=== PATIENT | female | born 1950 | race Two or more races ===

== ENCOUNTER 2019-06-25 23:52 | Inpatient (IN) | payer SELFPAY ==
[~2019-06-25] VITALS: Ht 152.4 cm; Wt 75.4 kg
[2019-06-26] MEDS ORDERED: MORPHINE SULFATE 4 MG/ML VIAL. IV/SQ PRN (00:15)
[2019-06-26 00:23] LABS: BILIRUBIN,URINE NEGATIVE (NEG); CLARITY,URINE CLEAR; COLOR,URINE YELLOW; NITRITE,URINE NEGATIVE (NEG); PROTEIN,URINE 30 mg/dL (NEG-TRACE); UROBILINOGEN,URINE 0.2 mg/dL (0.2 mg/dL)
[2019-06-26 00:28] LABS: BACTERIA,URINE FEW /HPF (0-FEW); SQUAMOUS EPITHELIAL CELL,UR FEW /LPF
[2019-06-26 00:29] LABS: AMORPHOUS SEDIMENT,UR PRESENT /HPF
[2019-06-26] MEDS ORDERED: ONDANSETRON PF 4 MG/2 ML VIAL. IV ONE (00:30)
[2019-06-26 00:31] LABS: BASO % 1 % (0-3); EOS # 0.3 x10^3/uL (0.0-0.7); EOS % 4 % (0-3); HEMATOCRIT 35.1 % (36.0-47.0); HEMOGLOBIN 11.6 g/dL (12.0-15.5); LYMPH # 1.3 x10^3/uL (1.0-4.8); LYMPH % 19 % (24-48); MEAN CORPUSCULAR HEMOGLOBIN 29 pg (25-35); MEAN CORPUSCULAR HGB CONC 33 g/dL (31-37); MEAN CORPUSCULAR VOLUME 86 fL (79-100); MONO # 0.9 x10^3/uL (0.0-1.1); MONO % 12 % (0-9); NEUT # 4.4 x10^3/uL (1.8-7.7); NEUT % 64 % (31-73); PLATELET COUNT 242 x10^3/uL (140-400); RED BLOOD COUNT 4.07 x10^6/uL (3.50-5.40); RED CELL DISTRIBUTION WIDTH 14.8 % (11.5-14.5); WHITE BLOOD COUNT 6.9 x10^3/uL (4.0-11.0)
[2019-06-26] MEDS ORDERED: METF10007 PO (00:38)
[2019-06-26] MEDS ORDERED: LISI1TAB20 PO (00:39)
[2019-06-26] MEDS ORDERED: SITA1TBM4 PO (00:39)
[2019-06-26 00:40] LABS: CALCIUM 9.5 mg/dL (8.5-10.1); CREATININE 1.4 mg/dL (0.6-1.0); GFR 37.5; POTASSIUM 4.2 mmol/L (3.5-5.1)
[2019-06-26] MEDS ORDERED: ATOR40TA59 PO (00:40)
[2019-06-26 00:41] LABS: PROTHROMBIN TIME PATIENT 12.6 SEC (11.7-14.0)
[2019-06-26 00:46] LABS: ALBUMIN 3.7 g/dL (3.4-5.0); ALBUMIN/GLOBULIN RATIO 0.7 (1.0-1.7); DIRECT BILIRUBIN 1.5 mg/dL (0.0-0.2); TOTAL BILIRUBIN 1.7 mg/dL (0.2-1.0)
[2019-06-26] MEDS ORDERED: INSU100V5 IJ (00:50)
[2019-06-26] MEDS ORDERED: NPH,100V SQ (00:51)
[2019-06-26] MEDS ORDERED: IV NORMAL SALINE 1000ML BAG 1,000 ML IV ONE (01:15)
--- NOTE | 2019-06-26 01:23 | RAD ---
Indication:Right upper quadrant pain. TECHNIQUE: Grayscale, color Doppler and spectral waveform is of the abdomen obtained. COMPARISON:None FINDINGS: Pancreas not visualized during bowel gas. IVC is within normal limits. Liver is top normal in size measuring 17 cm with diffuse increased echogenicity and decreased through transmission. Status post cholecystectomy. CBD is mildly dilated measuring 7 mm likely secondary to reservoir effect from cholecystectomy. Right kidney measures 11.3 cm in length without hydronephrosis. IMPRESSION: Hepatic steatosis. Electronically signed by: Fady Ratliff DO (06/26/2019 1:20 AM) [facility]
--- NOTE | 2019-06-26 01:35 | RAD ---
PQRS Compliance statement: One or more of the following individualized dose reduction techniques were utilized for this examination: 1. Automated exposure control. 2. Adjustment of the mA and/or kV according to patient size. 3. Use of iterative reconstruction technique. Indication:Pain TECHNIQUE: CT abdomen and pelvis without IV contrast with multiplanar reformats. COMPARISON: None FINDINGS: Limited evaluation of solid abdominal and pelvic organs due to lack of IV contrast. Heart is normal in size. No pericardial or pleural effusion. Clear lung bases. Noncontrast appearance of the liver, spleen, pancreas, adrenals and kidneys within normal limits. Status post cholecystectomy. No enlarged retroperitoneal or pelvic adenopathy. No free pelvic fluid or ascites. No bowel obstruction. Appendix not visualized. No right lower quadrant inflammatory changes. Anteverted uterus. Urinary bladder demonstrates no radiopaque stone. No pneumoperitoneum. No suspicious bony lesion. IMPRESSION: Limited evaluation of solid abdominal and pelvic organs due to lack of IV contrast. No nephrolithiasis or hydronephrosis. No bowel obstruction. Electronically signed by: Fady Ratliff DO (06/26/2019 1:32 AM) [facility]
[2019-06-26] MEDS ORDERED: ONDANSETRON PF 4 MG/2 ML VIAL. IV PRN ×2 (02:45→09:00)
[2019-06-26] MEDS ORDERED: MORPHINE SULFATE 4 MG/ML VIAL. IV PRN (02:45)
[2019-06-26 03:20] VITALS: BP 143/59
--- NOTE | 2019-06-26 03:29 | NUR ---
The patient, KIMBERLY THOMSON, 68 y/o, F admitted by ALYSSA AZEVEDO MD, was given written information regarding hospital policies, unit procedures and contact persons. Valuables were checked and left with her, she is polish speaking only family are here to translate.
--- NOTE | 2019-06-26 03:34 | PHYS DOC ---
Past Medical History Past Medical History: Diabetes-Type I Past Surgical History: Cholecystectomy, Other Additional Past Surgical Histo: RIGHT EYE SURGERY? Alcohol Use: None Drug Use: None Adult General Chief Complaint Chief Complaint: ABDOMINAL PAIN HPI HPI Patient is a 68 year old female who presents to the ED with a chief complaint of abdominal pain. Patient states that the pain started yesterday but got worse tonight. Patient describes the pain is in the right upper quadrant and also in e pigastric region. Patient states that the pain radiates around to her right upper back. Patient states that she does not have a gallbladder. Patient also states that her blood glucose is benign the past 1 day. Patient to consider longer coming into the ER. Review of Systems Review of Systems Constitutional: Denies fever or chills [] HENT: Denies nasal congestion or sore throat [] Respiratory: Denies cough or shortness of breath [] Cardiovascular: No additional information not addressed in HPI [] GI: Complains of right upper quadrant and epigastric abdominal tenderness : Denies dysuria or hematuria [] Musculoskeletal: Denies back pain or joint pain [] Neurologic: Denies headache, focal weakness or sensory changes [] All other systems were reviewed and found to be within normal limits, except as documented in this note. Current Medications Current Medications Current Medications Medications (Trade) Dose Ordered Sig/Nick Start Time Stop Time Status Last Admin Dose Admin Morphine Sulfate (Morphine Sulfate) 4 mg PRN Q2HR PRN 06/26/19 02:45 06/27/19 02:44 Ondansetron HCl (Zofran) 4 mg PRN Q8HRS PRN 06/26/19 02:45 06/27/19 02:44 Sodium Chloride 1,000 ml @ 125 mls/hr Q8H 06/26/19 02:45 06/27/19 02:44 Allergies Allergies Allergies Coded Allergies Type Severity Reaction Last Updated Verified No Known Drug Allergies 06/26/19 No Physical Exam Physical Exam Constitutional: Well developed, well nourished, no acute distress, non-toxic appearance. [] HENT: Normocephalic, atraumatic Eyes: PERRLA, EOMI Neck: Normal range of motion, no tenderness, supple, no stridor. [] Cardiovascular:Heart rate regular rhythm, no murmur [] Lungs & Thorax: Bilateral breath sounds clear to auscultation [] Abdomen: Right upper quadrant abdominal tenderness Back: No tenderness, no CVA tenderness. [] Extremities: No tenderness, no cyanosis, no clubbing, ROM intact, no edema. [] Neurologic: Alert and oriented X 3 Psychologic: Affect normal, judgement normal, mood normal. [] Current Patient Data Vital Signs Vital Signs Date Time Temp Pulse Resp B/P (MAP) Pulse Ox O2 Delivery O2 Flow Rate FiO2 06/26/19 02:36 82 18 182/74 (110) 98 06/26/19 00:05 98.7 Room Air 98.7 Lab Values Laboratory Tests Test 06/26/19 00:10 06/26/19 00:15 Urine Collection Type Unknown Urine Color Yellow Urine Clarity Clear Urine pH 6.0 Urine Specific [place] 1.010 Urine Protein 30 mg/dL (NEG-TRACE) Urine Glucose (UA) 100 mg/dL (NEG) Urine Ketones (Stick) Negative mg/dL (NEG) Urine Blood Trace (NEG) Urine Nitrite Negative (NEG) Urine Bilirubin Negative (NEG) Urine Urobilinogen Dipstick 0.2 mg/dL (0.2 mg/dL) Urine Leukocyte Esterase Small (NEG) Urine RBC 1-2 /HPF (0-2) Urine WBC 11-20 /HPF (0-4) Urine Squamous Epithelial Cells Few /LPF Urine Amorphous Sediment Present /HPF Urine Bacteria Few /HPF (0-FEW) White Blood Count 6.9 x10^3/uL (4.0-11.0) Red Blood Count 4.07 x10^6/uL (3.50-5.40) Hemoglobin 11.6 g/dL (12.0-15.5) L Hematocrit 35.1 % (36.0-47.0) L Mean Corpuscular Volume 86 fL (79-100) Mean Corpuscular Hemoglobin 29 pg (25-35) Mean Corpuscular Hemoglobin Concent 33 g/dL (31-37) Red Cell Distribution Width 14.8 % (11.5-14.5) H Platelet Count 242 x10^3/uL (140-400) Neutrophils (%) (Auto) 64 % (31-73) Lymphocytes (%) (Auto) 19 % (24-48) L Monocytes (%) (Auto) 12 % (0-9) H Eosinophils (%) (Auto) 4 % (0-3) H Basophils (%) (Auto) 1 % (0-3) Neutrophils # (Auto) 4.4 x10^3/uL (1.8-7.7) Lymphocytes # (Auto) 1.3 x10^3/uL (1.0-4.8) Monocytes # (Auto) 0.9 x10^3/uL (0.0-1.1) Eosinophils # (Auto) 0.3 x10^3/uL (0.0-0.7) Basophils # (Auto) 0.0 x10^3/uL (0.0-0.2) Prothrombin Time 12.6 SEC (11.7-14.0) Prothrombin Time INR 1.0 (0.8-1.1) Sodium Level 134 mmol/L (136-145) L Potassium Level 4.2 mmol/L (3.5-5.1) Chloride Level 98 mmol/L (98-107) Carbon Dioxide Level 25 mmol/L (21-32) Anion Gap 11 (6-14) Blood Urea Nitrogen 24 mg/dL (7-20) H Creatinine 1.4 mg/dL (0.6-1.0) H Estimated GFR (Cockcroft-Gault) 37.5 BUN/Creatinine Ratio 17 (6-20) Glucose Level 176 mg/dL (70-99) H Calcium Level 9.5 mg/dL (8.5-10.1) Total Bilirubin 1.7 mg/dL (0.2-1.0) H Direct Bilirubin 1.5 mg/dL (0.0-0.2) H Aspartate Amino Transferase (AST) 251 U/L (15-37) H Alanine Aminotransferase (ALT) 269 U/L (14-59) H Alkaline Phosphatase 486 U/L (46-116) H Total Protein 9.0 g/dL (6.4-8.2) H Albumin 3.7 g/dL (3.4-5.0) Albumin/Globulin Ratio 0.7 (1.0-1.7) L Lipase 865 U/L (73-393) H Laboratory Tests 06/26/19 00:15 Laboratory Tests 06/26/19 00:15 EKG EKG EKG interpretation HR: 86 Normal sinus rhythm Regular intervals Normal axis Nonspecific ST changes No STEMI Radiology/Procedures Radiology/Procedures Ordered ultrasound and CT abdomen and pelvis Impressions: Ultrasound shows no acute process. Patient does not have a gallbladder which has been surgically removed. CT scan of the abdomen and pelvis without IV contrast is negative for acute process. We had to do the CT without IV contrast secondary to patient's kidney function. Course & Med Decision Making Course & Med Decision Making Pertinent Labs and Imaging studies reviewed. (See chart for details) Ordered labs, UA, ultrasound, IV morphine, IV Zofran Labs show that the liver function tests are elevated. Lipase is elevated as well. Ultrasound does not show any acute disease. Ordered CT abdomen and pelvis without IV contrast S patient's kidney function is low. UA shows WBCs that no nitrites or leukocyte esterase. CT abdomen and pelvis shows no acute disease. Discussed results and plan of care with patient and family. Patient will be admitted for further workup and evaluation of elevated liver function tests, lipase and acute abdominal pain. I discussed case with hospitalist service for admission. Patient will likely benefit from GI consult. Dragon Disclaimer Dragon Disclaimer This electronic medical record was generated, in whole or in part, using a voice recognition dictation system. Departure Departure Referrals: ADELINA BOYER DO (PCP) SATNAM PINK DO Jun 26, 2019 03:33
[2019-06-26] MEDS: IV NORMAL SALINE 1000ML BAG 1,000 ML IV SCH ×2 (03:44→10:45)
[2019-06-26] MEDS ORDERED: CHOL500016 PO (06:06)
[2019-06-26] MEDS ORDERED: ASPI81TA59 PO (06:06)
[2019-06-26] MEDS ORDERED: RANI150T2 PO (06:06)
[2019-06-26] MEDS ORDERED: CYAN-25 PO (06:06)
--- NOTE | 2019-06-26 06:13 | EKG ---
[facility] [address] [place] [address] Test Date: 2019-06-26 Test Time: 00:31:49 Pat Name: KIMBERLY THOMSON Department: Room: [facility] Gender: F Scada Operator: : 1950 Requested By: SATNAM PINK Order Number: [id number] Reading MD: Robbie Keith MD Measurements Intervals [place] Rate: 86 P: 54 MT: 154 QRS: -34 QRSD: 90 T: 47 QT: 358 QTc: 431 Interpretive Statements SR NON-SPECIFIC ST/T CHANGES Electronically Signed On 07-03-2019 15:44:06 CDT by Robbie Keith MD
[2019-06-26] MEDS ORDERED: DEXTROSE 50% 25 GM / 50ML DISP.SYRIN. IV PRN ×2 (06:15→09:00)
[2019-06-26 07:00] VITALS: BP 143/59
[2019-06-26] MEDS ORDERED: INSULIN LISPRO 300 UNITS/3 ML VIAL. SQ SCH (08:00)
[2019-06-26] MEDS: CYANOCOBALAMIN (VITAMIN B-12) 1,000 MCG TABLET. PO SCH (09:00)
[2019-06-26] MEDS: CHOLECALCIFEROL (VITAMIN D3) 1,000 UNIT TABLET PO SCH (09:00)
[2019-06-26] MEDS: ASPIRIN CHEWABLE 81 MG TABLET. PO SCH (09:00)
[2019-06-26] MEDS ORDERED: traMADol 50 MG TABLET PO PRN (09:15)
[2019-06-26] MEDS ORDERED: cloNIDine HCL 0.1 MG TABLET PO PRN (09:15)
--- NOTE | 2019-06-26 09:16 | PDOC2 ---
GI CONSULT Reason For Consult: Elevated LFTs and lipase HPI: HPI: 68 y/o Kyrgyz-speaking female admitted through ER - translation help from her son, Landen. 3 days of worsening right-sided burning wrapping around to right flank, similar to symptoms prior to cholecystectomy several years ago at [facility] for cholelithiasi s. Pain worse w/ bending over. Subjective fever. Has noted hyperglycemia as well. H/o GERD improved w/ ranitidine. No n/v, dysphagia, diarrhea, constipation, weight loss, or bleeding. Previous EGD ~6 years ago at [facility], reportedly normal. Colonoscopy also reportedly normal years ago at [facility]. No liver, pancreas, or PUD history. Daily ASA. Labs note normal WBC, Hgb 11.6, INR 1, BUN 24, Cr 1.4, bili 1.7, AST 251, ALT 269, Alk Phos 486, lipase 865. CT w/o contrast noted normal pancreas. US shows hepatic steatosis and CBD 7mm post-cholecystectomy. PMH: PMH: HTN, HLD, DM, GERD , right eye surgery, cholecystectomy FH: Family History: No pertinent hx Social History: Smoke: No ALCOHOL: none ROS: GEN: +fevers HEENT: Denies blurred vision, sore throat CV: Denies chest pain RESP: Denies shortness of air, cough GI: Per HPI : Denies hematuria, dysuria ENDO: Denies weight changes NEURO: Denies confusion, dizziness MSK: Denies weakness, joint pain/swelling SKIN: Denies jaundice, pruritus Vitals: Vitals: Vital Signs Date Time Temp Pulse Resp B/P (MAP) Pulse Ox O2 Delivery O2 Flow Rate FiO2 06/26/19 07:00 98.4 73 16 143/59 (87) 95 Room Air 98.4 Labs: Labs: Laboratory Tests Test 06/26/19 00:10 06/26/19 00:15 Urine Collection Type Unknown Urine Color Yellow Urine Clarity Clear Urine pH 6.0 Urine Specific [place] 1.010 Urine Protein 30 mg/dL (NEG-TRACE) Urine Glucose (UA) 100 mg/dL (NEG) Urine Ketones (Stick) Negative mg/dL (NEG) Urine Blood Trace (NEG) Urine Nitrite Negative (NEG) Urine Bilirubin Negative (NEG) Urine Urobilinogen Dipstick 0.2 mg/dL (0.2 mg/dL) Urine Leukocyte Esterase Small (NEG) Urine RBC 1-2 /HPF (0-2) Urine WBC 11-20 /HPF (0-4) Urine Squamous Epithelial Cells Few /LPF Urine Amorphous Sediment Present /HPF Urine Bacteria Few /HPF (0-FEW) White Blood Count 6.9 x10^3/uL (4.0-11.0) Red Blood Count 4.07 x10^6/uL (3.50-5.40) Hemoglobin 11.6 g/dL (12.0-15.5) Hematocrit 35.1 % (36.0-47.0) Mean Corpuscular Volume 86 fL (79-100) Mean Corpuscular Hemoglobin 29 pg (25-35) Mean Corpuscular Hemoglobin Concent 33 g/dL (31-37) Red Cell Distribution Width 14.8 % (11.5-14.5) Platelet Count 242 x10^3/uL (140-400) Neutrophils (%) (Auto) 64 % (31-73) Lymphocytes (%) (Auto) 19 % (24-48) Monocytes (%) (Auto) 12 % (0-9) Eosinophils (%) (Auto) 4 % (0-3) Basophils (%) (Auto) 1 % (0-3) Neutrophils # (Auto) 4.4 x10^3/uL (1.8-7.7) Lymphocytes # (Auto) 1.3 x10^3/uL (1.0-4.8) Monocytes # (Auto) 0.9 x10^3/uL (0.0-1.1) Eosinophils # (Auto) 0.3 x10^3/uL (0.0-0.7) Basophils # (Auto) 0.0 x10^3/uL (0.0-0.2) Prothrombin Time 12.6 SEC (11.7-14.0) Prothromb Time International Ratio 1.0 (0.8-1.1) Sodium Level 134 mmol/L (136-145) Potassium Level 4.2 mmol/L (3.5-5.1) Chloride Level 98 mmol/L (98-107) Carbon Dioxide Level 25 mmol/L (21-32) Anion Gap 11 (6-14) Blood Urea Nitrogen 24 mg/dL (7-20) Creatinine 1.4 mg/dL (0.6-1.0) Estimated GFR (Cockcroft-Gault) 37.5 BUN/Creatinine Ratio 17 (6-20) Glucose Level 176 mg/dL (70-99) Calcium Level 9.5 mg/dL (8.5-10.1) Total Bilirubin 1.7 mg/dL (0.2-1.0) Direct Bilirubin 1.5 mg/dL (0.0-0.2) Aspartate Amino Transf (AST/SGOT) 251 U/L (15-37) Alanine Aminotransferase (ALT/SGPT) 269 U/L (14-59) Alkaline Phosphatase 486 U/L (46-116) Total Protein 9.0 g/dL (6.4-8.2) Albumin 3.7 g/dL (3.4-5.0) Albumin/Globulin Ratio 0.7 (1.0-1.7) Lipase 865 U/L (73-393) Allergies: Coded Allergies: No Known Drug Allergies (Unverified , 06/26/19) Medications: Current Medications Medications (Trade) Dose Ordered Sig/Nick Route PRN Reason Start Time Stop Time Status Last Admin Dose Admin Morphine Sulfate (Morphine Sulfate) 4 mg PRN Q2HRS PRN IV/SQ PAIN GREATER THAN 3/10 06/26/19 00:15 06/27/19 00:14 06/26/19 00:37 Ondansetron HCl (Zofran) 4 mg 1X ONCE IV 06/26/19 00:30 06/26/19 00:33 DC 06/26/19 00:36 Sodium Chloride 1,000 ml @ 1,000 mls/hr 1X ONCE IV 06/26/19 01:15 06/26/19 02:14 DC 06/26/19 01:11 Morphine Sulfate (Morphine Sulfate) 4 mg PRN Q2HR PRN IV PAIN 06/26/19 02:45 06/27/19 02:44 06/26/19 05:23 Sodium Chloride 1,000 ml @ 125 mls/hr Q8H IV 06/26/19 02:45 06/27/19 02:44 06/26/19 03:44 Imaging: Imaging: Abd US FINDINGS: Pancreas not visualized during bowel gas. IVC is within normal limits. Liver is top normal in size measuring 17 cm with diffuse increasedechogenicity and decreased through transmission. Status post cholecystectomy. CBD is mildly dilated measuring 7 mm likely secondary to reservoir effect from cholecystectomy. Right kidney measures 11.3 cm in length without hydronephrosis. IMPRESSION: Hepatic steatosis. CT A/P w/o contrast FINDINGS: Limited evaluation of solid abdominal and pelvic organs due to lack of IV contrast. Heart is normal in size. No pericardial or pleural effusion. Clear lung bases. Noncontrast appearance of the liver, spleen, pancreas, adrenals and kidneys within normal limits. Status post cholecystectomy. No enlarged retroperitoneal or pelvic adenopathy. No free pelvic fluid or ascites. No bowel obstruction. Appendix not visualized. No right lower quadrant inflammatory changes. Anteverted uterus. Urinary bladder demonstrates no radiopaque stone. No pneumoperitoneum. No suspicious bony lesion. IMPRESSION: Limited evaluation of solid abdominal and pelvic organs due to lack of IV contrast. No nephrolithiasis or hydronephrosis. No bowel obstruction. PE: GEN: NAD HEENT: Atraumatic, PERRL LUNGS: CTAB HEART: RRR ABD: BS quiet, soft, RUQ tenderness EXTREMITY: No edema SKIN: No rashes, no jaundice NEURO/PSYCH: A & O 3 A/P: A/P: RUQ pain Anemia, ?KARIME/CKD, abnormal LFTs, elevated lipase Hepatic steatosis GERD - on H2 tiffani, reportedly normal EGD in the past CRC screen - reportedly normal colonoscopy years ago S/p cholecystectomy, CBD 7mm ASA use -- Reviewed w/ Dr. Kenyon - ERCP this afternoon - pt/family wish to proceed. JULIO CÉSAR GALVAN Jun 26, 2019 09:16
[2019-06-26] MEDS: PANTOPRAZOLE IV PUSH 40 MG VIAL. IVP SCH (10:51)
[2019-06-26] MEDS ORDERED: IV RINGERS,LACTATED 1000ML 1,000 ML IV SCH (10:54)
[2019-06-26 10:56] VITALS: BP 133/48
[2019-06-26] MEDS: INSULIN LISPRO 300 UNITS/3 ML VIAL. SQ SCH ×2 (12:00→17:00)
--- NOTE | 2019-06-26 12:02 | NUR ---
SW following for discharge planning. Discussed with RN, pt is from home with family. Pt is Welsh speaking only, not a citizen, and self pay. Pt is having an ERCP today. SW will continue to follow for discharge planning.
--- NOTE | 2019-06-26 12:52 | PDOC1 ---
History and Physical Date of Admission Date of Admission DATE: 06/26/19 TIME: 12:47 Identification/Chief Complaint Chief Complaint abd pain Source Source: Caregiver, Chart review, Patient History of Present Illness History of Present Illness 68 female, nepali speaking only, some fam members help translate, epig pain, radiating to back, similar to rocio [facility] yrs ago. LAbs elev LFts, imaging fatty liver, I consulted, GI, for ERCP later, HAs been npo, still pain but not requesting IV pain meds,. NOn toxic appearing, Acute hepatitis panel neg, non drinker, no smoking, no hx hepatitis Past Medical History Cardiovascular: HTN Past Surgical History Past Surgical History: Cholecystectomy Family History Family History: High Cholestrol, Hypertension Social History Smoke: No ALCOHOL: none Drugs: None Current Medications Current Medications Current Medications Morphine Sulfate (Morphine Sulfate) 4 mg PRN Q2HRS PRN IV/SQ PAIN GREATER THAN 3/10 Last administered on 06/26/19at 00:37; Start 06/26/19 at 00:15; Stop 06/27/19 at 00:14 Ondansetron HCl (Zofran) 4 mg 1X ONCE IV Last administered on 06/26/19at 00:36; Start 06/26/19 at 00:30; Stop 06/26/19 at 00:33; Status DC Sodium Chloride 1,000 ml @ 1,000 mls/hr 1X ONCE IV Last administered on 06/26/19at 01:11; Start 06/26/19 at 01:15; Stop 06/26/19 at 02:14; Status DC Ondansetron HCl (Zofran) 4 mg PRN Q8HRS PRN IV NAUSEA/VOMITING; Start 06/26/19 at 02:45; Stop 06/26/19 at 09:01; Status DC Morphine Sulfate (Morphine Sulfate) 4 mg PRN Q2HR PRN IV PAIN Last administered on 06/26/19at 05:23; Start 06/26/19 at 02:45; Stop 06/27/19 at 02:44 Sodium Chloride 1,000 ml @ 125 mls/hr Q8H IV Last administered on 06/26/19at 03:44; Start 06/26/19 at 02:45; Stop 06/27/19 at 02:44 Insulin Human Lispro (HumaLOG) 0-5 UNITS TIDWMEALS SQ ; Start 06/26/19 at 08:00; Stop 06/26/19 at 09:01; Status DC Dextrose (Dextrose 50%-Water Syringe) 12.5 gm PRN Q15MIN PRN IV SEE COMMENTS; Start 06/26/19 at 06:15 Ondansetron HCl (Zofran) 4 mg PRN Q6HRS PRN IV NAUSEA/VOMITING; Start 06/26/19 at 09:00 Insulin Human Lispro (HumaLOG) 0-9 UNITS TIDWMEALS SQ ; Start 06/26/19 at 12:00 Dextrose (Dextrose 50%-Water Syringe) 12.5 gm PRN Q15MIN PRN IV SEE COMMENTS; Start 06/26/19 at 09:00 Aspirin (Children'S Aspirin) 81 mg DAILY PO ; Start 06/26/19 at 09:00 Cyanocobalamin (Vitamin B-12) 1,000 mcg DAILY PO ; Start 06/26/19 at 09:00 Vitamin D (Vitamin D3) 1,000 unit DAILY PO ; Start 06/26/19 at 09:00 Famotidine (Pepcid) 20 mg HS PO ; Start 06/26/19 at 21:00; Stop 06/26/19 at 09:23; Status DC Clonidine HCl (Catapres) 0.1 mg PRN Q1HR PRN PO HYPERTENSION; Start 06/26/19 at 09:15 Tramadol HCl (Ultram) 25 mg PRN Q6HRS PRN PO PAIN; Start 06/26/19 at 09:15 Pantoprazole Sodium (PROTONIX VIAL for IV PUSH) 40 mg DAILYAC IVP Last administered on 06/26/19at 10:51; Start 06/26/19 at 10:00 Ringer's Solution 1,000 ml @ 50 mls/hr Q20H IV ; Start 06/26/19 at 10:54; Stop 06/26/19 at 22:53 Active Scripts Active Reported Vitamin D3 (Cholecalciferol (Vitamin D3)) 5,000 Unit Tablet 1 Tab PO DAILY 30 Days Vitamin B-12 (Cyanocobalamin (Vitamin B-12)) 1,000 Mcg Tablet 1 Tab PO DAILY 30 Days Children's Aspirin (Aspirin) 81 Mg Tab.chew 81 Mg PO DAILY Ranitidine Hcl 150 Mg Tablet 1 Tab PO BID Humulin N (Nph, Human Insulin Isophane) 100 Unit/1 Ml Vial 100 Unit SQ Humulin R (Insulin Regular, Human) 100 Unit/1 Ml Vial 100 Unit IJ Atorvastatin Calcium 40 Mg Tablet 40 Mg PO DAILY Lisinopril-Hctz 20-25 Mg Tab (Lisinopril/Hydrochlorothiazide) 1 Each Tablet 1 Tab PO DAILY Janumet Xr 50-1,000 Mg Tablet (Sitagliptin Phos/Metformin Hcl) 1 Each Tbmp.24hr 1 Each PO DAILY Metformin Hcl 1,000 Mg Tablet 1,000 Mg PO DAILYWBKFT Allergies Allergies: Coded Allergies: No Known Drug Allergies (Unverified , 06/26/19) ROS Review of System neg as per HPI, 14 pt reviewed Physical Exam General: Alert, Oriented X3, Cooperative, No acute distress HEENT: Atraumatic, PERRLA, EOMI Lungs: Clear to auscultation, Normal air movement Heart: S1S2, RRR, no thrills, no rubs, no gallops, no murmurs Cardiovascular: S1, S2 Breasts: Normal, Rt breast nml w/o mass, Lt breast nml w/o mass, Nipples normal Abdomen: Normal bowel sounds, Soft, Other (tenderness epig area, no guarding) Rectal Exam: not examined PELVIC: Nml ext genitalia Extremities: No clubbing, No cyanosis, No edema, Normal pulses, No tenderness/swelling Skin: No rashes, No breakdown, No significant lesion Neuro: Normal gait, Normal speech, Strength at 5/5 X4 ext, Normal tone, Sensation intact, Cranial nerves 3-12 NL, Reflexes 2+ Psych/Mental Status: Mental status NL, Mood NL Vitals Vitals Vital Signs Date Time Temp Pulse Resp B/P (MAP) Pulse Ox O2 Delivery O2 Flow Rate FiO2 06/26/19 10:56 98.5 70 16 133/48 (76) 96 Room Air 98.5 Labs Labs Laboratory Tests Test 06/26/19 00:10 06/26/19 00:15 06/26/19 11:35 Urine Collection Type Unknown Urine Color Yellow Urine Clarity Clear Urine pH 6.0 Urine Specific [place] 1.010 Urine Protein 30 mg/dL (NEG-TRACE) Urine Glucose (UA) 100 mg/dL (NEG) Urine Ketones (Stick) Negative mg/dL (NEG) Urine Blood Trace (NEG) Urine Nitrite Negative (NEG) Urine Bilirubin Negative (NEG) Urine Urobilinogen Dipstick 0.2 mg/dL (0.2 mg/dL) Urine Leukocyte Esterase Small (NEG) Urine RBC 1-2 /HPF (0-2) Urine WBC 11-20 /HPF (0-4) Urine Squamous Epithelial Cells Few /LPF Urine Amorphous Sediment Present /HPF Urine Bacteria Few /HPF (0-FEW) White Blood Count 6.9 x10^3/uL (4.0-11.0) Red Blood Count 4.07 x10^6/uL (3.50-5.40) Hemoglobin 11.6 g/dL (12.0-15.5) Hematocrit 35.1 % (36.0-47.0) Mean Corpuscular Volume 86 fL (79-100) Mean Corpuscular Hemoglobin 29 pg (25-35) Mean Corpuscular Hemoglobin Concent 33 g/dL (31-37) Red Cell Distribution Width 14.8 % (11.5-14.5) Platelet Count 242 x10^3/uL (140-400) Neutrophils (%) (Auto) 64 % (31-73) Lymphocytes (%) (Auto) 19 % (24-48) Monocytes (%) (Auto) 12 % (0-9) Eosinophils (%) (Auto) 4 % (0-3) Basophils (%) (Auto) 1 % (0-3) Neutrophils # (Auto) 4.4 x10^3/uL (1.8-7.7) Lymphocytes # (Auto) 1.3 x10^3/uL (1.0-4.8) Monocytes # (Auto) 0.9 x10^3/uL (0.0-1.1) Eosinophils # (Auto) 0.3 x10^3/uL (0.0-0.7) Basophils # (Auto) 0.0 x10^3/uL (0.0-0.2) Prothrombin Time 12.6 SEC (11.7-14.0) Prothromb Time International Ratio 1.0 (0.8-1.1) Sodium Level 134 mmol/L (136-145) Potassium Level 4.2 mmol/L (3.5-5.1) Chloride Level 98 mmol/L (98-107) Carbon Dioxide Level 25 mmol/L (21-32) Anion Gap 11 (6-14) Blood Urea Nitrogen 24 mg/dL (7-20) Creatinine 1.4 mg/dL (0.6-1.0) Estimated GFR (Cockcroft-Gault) 37.5 BUN/Creatinine Ratio 17 (6-20) Glucose Level 176 mg/dL (70-99) Calcium Level 9.5 mg/dL (8.5-10.1) Total Bilirubin 1.7 mg/dL (0.2-1.0) Direct Bilirubin 1.5 mg/dL (0.0-0.2) Aspartate Amino Transf (AST/SGOT) 251 U/L (15-37) Alanine Aminotransferase (ALT/SGPT) 269 U/L (14-59) Alkaline Phosphatase 486 U/L (46-116) Total Protein 9.0 g/dL (6.4-8.2) Albumin 3.7 g/dL (3.4-5.0) Albumin/Globulin Ratio 0.7 (1.0-1.7) Lipase 865 U/L (73-393) Hepatitis A IgM Antibody Nonreactive (Nonreactive) Hepatitis B Surface Antigen Nonreactive (Nonreactive) Hepatitis B Core IgM Antibody Nonreactive (Nonreactive) Hepatitis C IgG Antibody Nonreactive (Nonreactive) Glucose (Fingerstick) 88 mg/dL (70-99) Laboratory Tests Test 06/26/19 00:10 06/26/19 00:15 06/26/19 11:35 Urine Collection Type Unknown Urine Color Yellow Urine Clarity Clear Urine pH 6.0 Urine Specific [place] 1.010 Urine Protein 30 mg/dL (NEG-TRACE) Urine Glucose (UA) 100 mg/dL (NEG) Urine Ketones (Stick) Negative mg/dL (NEG) Urine Blood Trace (NEG) Urine Nitrite Negative (NEG) Urine Bilirubin Negative (NEG) Urine Urobilinogen Dipstick 0.2 mg/dL (0.2 mg/dL) Urine Leukocyte Esterase Small (NEG) Urine RBC 1-2 /HPF (0-2) Urine WBC 11-20 /HPF (0-4) Urine Squamous Epithelial Cells Few /LPF Urine Amorphous Sediment Present /HPF Urine Bacteria Few /HPF (0-FEW) White Blood Count 6.9 x10^3/uL (4.0-11.0) Red Blood Count 4.07 x10^6/uL (3.50-5.40) Hemoglobin 11.6 g/dL (12.0-15.5) Hematocrit 35.1 % (36.0-47.0) Mean Corpuscular Volume 86 fL (79-100) Mean Corpuscular Hemoglobin 29 pg (25-35) Mean Corpuscular Hemoglobin Concent 33 g/dL (31-37) Red Cell Distribution Width 14.8 % (11.5-14.5) Platelet Count 242 x10^3/uL (140-400) Neutrophils (%) (Auto) 64 % (31-73) Lymphocytes (%) (Auto) 19 % (24-48) Monocytes (%) (Auto) 12 % (0-9) Eosinophils (%) (Auto) 4 % (0-3) Basophils (%) (Auto) 1 % (0-3) Neutrophils # (Auto) 4.4 x10^3/uL (1.8-7.7) Lymphocytes # (Auto) 1.3 x10^3/uL (1.0-4.8) Monocytes # (Auto) 0.9 x10^3/uL (0.0-1.1) Eosinophils # (Auto) 0.3 x10^3/uL (0.0-0.7) Basophils # (Auto) 0.0 x10^3/uL (0.0-0.2) Prothrombin Time 12.6 SEC (11.7-14.0) Prothromb Time International Ratio 1.0 (0.8-1.1) Sodium Level 134 mmol/L (136-145) Potassium Level 4.2 mmol/L (3.5-5.1) Chloride Level 98 mmol/L (98-107) Carbon Dioxide Level 25 mmol/L (21-32) Anion Gap 11 (6-14) Blood Urea Nitrogen 24 mg/dL (7-20) Creatinine 1.4 mg/dL (0.6-1.0) Estimated GFR (Cockcroft-Gault) 37.5 BUN/Creatinine Ratio 17 (6-20) Glucose Level 176 mg/dL (70-99) Calcium Level 9.5 mg/dL (8.5-10.1) Total Bilirubin 1.7 mg/dL (0.2-1.0) Direct Bilirubin 1.5 mg/dL (0.0-0.2) Aspartate Amino Transf (AST/SGOT) 251 U/L (15-37) Alanine Aminotransferase (ALT/SGPT) 269 U/L (14-59) Alkaline Phosphatase 486 U/L (46-116) Total Protein 9.0 g/dL (6.4-8.2) Albumin 3.7 g/dL (3.4-5.0) Albumin/Globulin Ratio 0.7 (1.0-1.7) Lipase 865 U/L (73-393) Hepatitis A IgM Antibody Nonreactive (Nonreactive) Hepatitis B Surface Antigen Nonreactive (Nonreactive) Hepatitis B Core IgM Antibody Nonreactive (Nonreactive) Hepatitis C IgG Antibody Nonreactive (Nonreactive) Glucose (Fingerstick) 88 mg/dL (70-99) VTE Prophylaxis Ordered VTE Prophylaxis Devices: Yes VTE Pharmacological Prophylaxi: Yes Assessment/Plan Assessment/Plan epig pain, acute onset, hx rocio [facility] - ERCP ,later, r.o retained stones Transaminitis, acute hepatitis panel neg- as above Fatty liver HTN, controlled Obesity BMI 32 Anton, VMN - creat 1,4 PLAn: NPO, ERCP, trend CMP tmr GI consult Hold statin, metformin (creat 1,4) and hctz, lisinopril Recheck creat tmr IVF ddw family who translated for me LAVINIA MEREDITH MD Jun 26, 2019 12:52
[2019-06-26] MEDS ORDERED: IOHEXOL 300 MG/ML 100ML VIAL. ONE (14:12)
[2019-06-26] MEDS ORDERED: NEOSTIGMINE METHYLSULFATE 5 MG/5 ML SYRINGE. ONE (15:00)
[2019-06-26] MEDS ORDERED: ROCURONIUM 50 MG/5 ML VIAL. ONE (15:00)
[2019-06-26] MEDS ORDERED: SUCCINYLCHOLINE 200 MG/10 ML VIAL. ONE (15:00)
[2019-06-26] MEDS ORDERED: GLYCOPYRROLATE 1 MG/5 ML SYRINGE. ONE (15:00)
[2019-06-26] MEDS ORDERED: PROPOFOL 10 MG/ML (20ML) VIAL. IV ONE (15:00)
[2019-06-26] MEDS ORDERED: IOHEXOL 300 MG/ML 100ML VIAL. IV ONE (16:15)
--- NOTE | 2019-06-26 16:23 | PDOC4 ---
Operative Note Operative Note ERCP with sphincterotomy/sludge extraction Meds propofol per anesthesia Pre-op dx hx CBD stones/S/p rocio post-op dx s/p sphincterotomy/sludge withdrawal Plan am labs advance diet in am if without pancreatitis or other complication MELODY MCKEON MD Jun 26, 2019 16:22
--- NOTE | 2019-06-26 18:00 | RAD ---
Examination: ERCP BILIARY DUCT SYSYEM History: Elevated liver function enzymes Comparison/Correlation: 06/26/2019 CT abdomen and pelvis without contrast Findings: Fluoroscopy was utilized for 2.33 minutes. A total of 7 images were acquired. Right upper quadrant surgical clips are present. No extravasation about the cystic duct remnant. Filling defect involving the cystic duct distally is linear in appearance and may be artifactual. No suspicious filling defects involving the common hepatic duct or common bile duct. No stricture involving the common hepatic duct or common bile duct. Impression: No suspicious filling defects. Linear filling defect involving the cystic duct is present but may be artifactual. Electronically signed by: Duke Hernandez MD (06/26/2019 5:57 PM) [facility]
[2019-06-26 19:00] VITALS: BP 160/88
[2019-06-26] MEDS ORDERED: FAMOTIDINE 20 MG TABLET. PO SCH (21:00)
[2019-06-26 23:00] VITALS: BP 155/60
[2019-06-27 03:00] VITALS: BP 151/67
[2019-06-27 05:14] LABS: ALBUMIN 2.8 g/dL (3.4-5.0); ALBUMIN/GLOBULIN RATIO 0.7 (1.0-1.7); CALCIUM 8.5 mg/dL (8.5-10.1); CREATININE 0.9 mg/dL (0.6-1.0); GFR 62.5; POTASSIUM 3.7 mmol/L (3.5-5.1); TOTAL BILIRUBIN 2.2 mg/dL (0.2-1.0); TOTAL PROTEIN 6.9 g/dL (6.4-8.2)
[2019-06-27 07:00] VITALS: BP 152/49
[2019-06-27] MEDS ORDERED: IV NORMAL SALINE 1000ML BAG 1,000 ML IV SCH (07:45)
[2019-06-27] MEDS ORDERED: cloNIDine HCL 0.1 MG TABLET PO ONE (07:45)
[2019-06-27] MEDS ORDERED: cloNIDine HCL 0.1 MG TABLET PO PRN (07:45)
[2019-06-27] MEDS: INSULIN LISPRO 300 UNITS/3 ML VIAL. SQ SCH ×3 (08:00→17:06)
[2019-06-27] MEDS: PANTOPRAZOLE IV PUSH 40 MG VIAL. IVP SCH (09:02)
[2019-06-27] MEDS: ASPIRIN CHEWABLE 81 MG TABLET. PO SCH (09:02)
[2019-06-27] MEDS: CHOLECALCIFEROL (VITAMIN D3) 1,000 UNIT TABLET PO SCH (09:03)
[2019-06-27] MEDS: CYANOCOBALAMIN (VITAMIN B-12) 1,000 MCG TABLET. PO SCH (09:03)
[2019-06-27] MEDS: HYDROcodone/APAP 5/325MG 1 TAB TABLET PO PRN ×2 (09:03→17:19)
--- NOTE | 2019-06-27 09:25 | PDOC ---
PROGRESS NOTES Chief Complaint Chief Complaint s/p ERCP for CBD stone and extraction of sludge 06/26 TRansaminitis S.p distant cholecystectomy 7 yrs [facility] Obesity BMI 32.5 FAtty liver HTN, controlled Anton, VMN - creat 1,4 POA Acute panc - mild, lipase 800s History of Present Illness History of Present Illness FEels better post ercp with cbd and sludge extraction by GI yesterday LFTs coming down LIpase 800s, I ordered rpt - GI has okayed liqiuid diet CREat normalized from 1,.4 after IVF LIpase now 164 PLAN: MAy have diet now since lipase normal Current IVF to consume BAsed on how things are going, dc likely tmr dw family and RN Maru may check lFts again tmr Vitals Vitals Vital Signs Date Time Temp Pulse Resp B/P (MAP) Pulse Ox O2 Delivery O2 Flow Rate FiO2 06/27/19 09:03 73 152/49 06/27/19 09:03 Room Air 06/27/19 07:00 98.7 17 94 98.7 06/26/19 21:54 3.0 Physical Exam General: Alert, Oriented X3, Cooperative, No acute distress Abdomen: Normal bowel sounds, Soft, Other (tenderness epig area, no guarding) Extremities: No clubbing, No cyanosis, No edema, Normal pulses, No tenderness/swelling Skin: No rashes, No breakdown, No significant lesion Labs LABS Laboratory Tests Test 06/26/19 11:35 06/26/19 21:25 06/27/19 03:40 Glucose (Fingerstick) 88 mg/dL (70-99) 117 mg/dL (70-99) Sodium Level 141 mmol/L (136-145) Potassium Level 3.7 mmol/L (3.5-5.1) Chloride Level 104 mmol/L (98-107) Carbon Dioxide Level 24 mmol/L (21-32) Anion Gap 13 (6-14) Blood Urea Nitrogen 14 mg/dL (7-20) Creatinine 0.9 mg/dL (0.6-1.0) Estimated GFR (Cockcroft-Gault) 62.5 BUN/Creatinine Ratio 16 (6-20) Glucose Level 76 mg/dL (70-99) Calcium Level 8.5 mg/dL (8.5-10.1) Total Bilirubin 2.2 mg/dL (0.2-1.0) Aspartate Amino Transf (AST/SGOT) 232 U/L (15-37) Alanine Aminotransferase (ALT/SGPT) 192 U/L (14-59) Alkaline Phosphatase 476 U/L (46-116) Total Protein 6.9 g/dL (6.4-8.2) Albumin 2.8 g/dL (3.4-5.0) Albumin/Globulin Ratio 0.7 (1.0-1.7) Lipase 164 U/L (73-393) Review of Systems Review of Systems neg 14 pt reviewed with her Comment Review of Relevant I have reviewed the following items agustín (where applicable) has been applied. Labs Laboratory Tests Test 06/26/19 00:10 06/26/19 00:15 06/26/19 11:35 06/26/19 21:25 Urine Collection Type Unknown Urine Color Yellow Urine Clarity Clear Urine pH 6.0 Urine Specific [place] 1.010 Urine Protein 30 mg/dL (NEG-TRACE) Urine Glucose (UA) 100 mg/dL (NEG) Urine Ketones (Stick) Negative mg/dL (NEG) Urine Blood Trace (NEG) Urine Nitrite Negative (NEG) Urine Bilirubin Negative (NEG) Urine Urobilinogen Dipstick 0.2 mg/dL (0.2 mg/dL) Urine Leukocyte Esterase Small (NEG) Urine RBC 1-2 /HPF (0-2) Urine WBC 11-20 /HPF (0-4) Urine Squamous Epithelial Cells Few /LPF Urine Amorphous Sediment Present /HPF Urine Bacteria Few /HPF (0-FEW) White Blood Count 6.9 x10^3/uL (4.0-11.0) Red Blood Count 4.07 x10^6/uL (3.50-5.40) Hemoglobin 11.6 g/dL (12.0-15.5) Hematocrit 35.1 % (36.0-47.0) Mean Corpuscular Volume 86 fL (79-100) Mean Corpuscular Hemoglobin 29 pg (25-35) Mean Corpuscular Hemoglobin Concent 33 g/dL (31-37) Red Cell Distribution Width 14.8 % (11.5-14.5) Platelet Count 242 x10^3/uL (140-400) Neutrophils (%) (Auto) 64 % (31-73) Lymphocytes (%) (Auto) 19 % (24-48) Monocytes (%) (Auto) 12 % (0-9) Eosinophils (%) (Auto) 4 % (0-3) Basophils (%) (Auto) 1 % (0-3) Neutrophils # (Auto) 4.4 x10^3/uL (1.8-7.7) Lymphocytes # (Auto) 1.3 x10^3/uL (1.0-4.8) Monocytes # (Auto) 0.9 x10^3/uL (0.0-1.1) Eosinophils # (Auto) 0.3 x10^3/uL (0.0-0.7) Basophils # (Auto) 0.0 x10^3/uL (0.0-0.2) Prothrombin Time 12.6 SEC (11.7-14.0) Prothromb Time International Ratio 1.0 (0.8-1.1) Sodium Level 134 mmol/L (136-145) Potassium Level 4.2 mmol/L (3.5-5.1) Chloride Level 98 mmol/L (98-107) Carbon Dioxide Level 25 mmol/L (21-32) Anion Gap 11 (6-14) Blood Urea Nitrogen 24 mg/dL (7-20) Creatinine 1.4 mg/dL (0.6-1.0) Estimated GFR (Cockcroft-Gault) 37.5 BUN/Creatinine Ratio 17 (6-20) Glucose Level 176 mg/dL (70-99) Calcium Level 9.5 mg/dL (8.5-10.1) Total Bilirubin 1.7 mg/dL (0.2-1.0) Direct Bilirubin 1.5 mg/dL (0.0-0.2) Aspartate Amino Transf (AST/SGOT) 251 U/L (15-37) Alanine Aminotransferase (ALT/SGPT) 269 U/L (14-59) Alkaline Phosphatase 486 U/L (46-116) Total Protein 9.0 g/dL (6.4-8.2) Albumin 3.7 g/dL (3.4-5.0) Albumin/Globulin Ratio 0.7 (1.0-1.7) Lipase 865 U/L (73-393) Hepatitis A IgM Antibody Nonreactive (Nonreactive) Hepatitis B Surface Antigen Nonreactive (Nonreactive) Hepatitis B Core IgM Antibody Nonreactive (Nonreactive) Hepatitis C IgG Antibody Nonreactive (Nonreactive) Glucose (Fingerstick) 88 mg/dL (70-99) 117 mg/dL (70-99) Test 06/27/19 03:40 Sodium Level 141 mmol/L (136-145) Potassium Level 3.7 mmol/L (3.5-5.1) Chloride Level 104 mmol/L (98-107) Carbon Dioxide Level 24 mmol/L (21-32) Anion Gap 13 (6-14) Blood Urea Nitrogen 14 mg/dL (7-20) Creatinine 0.9 mg/dL (0.6-1.0) Estimated GFR (Cockcroft-Gault) 62.5 BUN/Creatinine Ratio 16 (6-20) Glucose Level 76 mg/dL (70-99) Calcium Level 8.5 mg/dL (8.5-10.1) Total Bilirubin 2.2 mg/dL (0.2-1.0) Aspartate Amino Transf (AST/SGOT) 232 U/L (15-37) Alanine Aminotransferase (ALT/SGPT) 192 U/L (14-59) Alkaline Phosphatase 476 U/L (46-116) Total Protein 6.9 g/dL (6.4-8.2) Albumin 2.8 g/dL (3.4-5.0) Albumin/Globulin Ratio 0.7 (1.0-1.7) Lipase 164 U/L (73-393) Laboratory Tests Test 06/26/19 11:35 06/26/19 21:25 06/27/19 03:40 Glucose (Fingerstick) 88 mg/dL (70-99) 117 mg/dL (70-99) Sodium Level 141 mmol/L (136-145) Potassium Level 3.7 mmol/L (3.5-5.1) Chloride Level 104 mmol/L (98-107) Carbon Dioxide Level 24 mmol/L (21-32) Anion Gap 13 (6-14) Blood Urea Nitrogen 14 mg/dL (7-20) Creatinine 0.9 mg/dL (0.6-1.0) Estimated GFR (Cockcroft-Gault) 62.5 BUN/Creatinine Ratio 16 (6-20) Glucose Level 76 mg/dL (70-99) Calcium Level 8.5 mg/dL (8.5-10.1) Total Bilirubin 2.2 mg/dL (0.2-1.0) Aspartate Amino Transf (AST/SGOT) 232 U/L (15-37) Alanine Aminotransferase (ALT/SGPT) 192 U/L (14-59) Alkaline Phosphatase 476 U/L (46-116) Total Protein 6.9 g/dL (6.4-8.2) Albumin 2.8 g/dL (3.4-5.0) Albumin/Globulin Ratio 0.7 (1.0-1.7) Lipase 164 U/L (73-393) Medications Current Medications Morphine Sulfate (Morphine Sulfate) 4 mg PRN Q2HRS PRN IV/SQ PAIN GREATER THAN 3/10 Last administered on 06/26/19at 00:37; Start 06/26/19 at 00:15; Stop 06/26/19 at 13:54; Status DC Ondansetron HCl (Zofran) 4 mg 1X ONCE IV Last administered on 06/26/19at 00:36; Start 06/26/19 at 00:30; Stop 06/26/19 at 00:33; Status DC Sodium Chloride 1,000 ml @ 1,000 mls/hr 1X ONCE IV Last administered on 06/26/19at 01:11; Start 06/26/19 at 01:15; Stop 06/26/19 at 02:14; Status DC Ondansetron HCl (Zofran) 4 mg PRN Q8HRS PRN IV NAUSEA/VOMITING; Start 06/26/19 at 02:45; Stop 06/26/19 at 09:01; Status DC Morphine Sulfate (Morphine Sulfate) 4 mg PRN Q2HR PRN IV PAIN Last administered on 06/26/19at 05:23; Start 06/26/19 at 02:45; Stop 06/26/19 at 13:54; Status DC Sodium Chloride 1,000 ml @ 125 mls/hr Q8H IV Last administered on 06/26/19at 0 3:44; Start 06/26/19 at 02:45; Stop 06/26/19 at 13:54; Status DC Insulin Human Lispro (HumaLOG) 0-5 UNITS TIDWMEALS SQ ; Start 06/26/19 at 08:00; Stop 06/26/19 at 09:01; Status DC Dextrose (Dextrose 50%-Water Syringe) 12.5 gm PRN Q15MIN PRN IV SEE COMMENTS; Start 06/26/19 at 06:15; Stop 06/26/19 at 16:00; Status DC Ondansetron HCl (Zofran) 4 mg PRN Q6HRS PRN IV NAUSEA/VOMITING; Start 06/26/19 at 09:00 Insulin Human Lispro (HumaLOG) 0-9 UNITS TIDWMEALS SQ ; Start 06/26/19 at 12:00 Dextrose (Dextrose 50%-Water Syringe) 12.5 gm PRN Q15MIN PRN IV SEE COMMENTS; Start 06/26/19 at 09:00 Aspirin (Children'S Aspirin) 81 mg DAILY PO Last administered on 06/27/19at 09:02; Start 06/26/19 at 09:00 Cyanocobalamin (Vitamin B-12) 1,000 mcg DAILY PO Last administered on 06/27/19at 09:03; Start 06/26/19 at 09:00 Vitamin D (Vitamin D3) 1,000 unit DAILY PO Last administered on 06/27/19at 09:03; Start 06/26/19 at 09:00 Famotidine (Pepcid) 20 mg HS PO ; Start 06/26/19 at 21:00; Stop 06/26/19 at 09:23; Status DC Clonidine HCl (Catapres) 0.1 mg PRN Q1HR PRN PO HYPERTENSION; Start 06/26/19 at 09:15 Tramadol HCl (Ultram) 25 mg PRN Q6HRS PRN PO PAIN Last administered on 06/26/19at 21:54; Start 06/26/19 at 09:15 Pantoprazole Sodium (PROTONIX VIAL for IV PUSH) 40 mg DAILYAC IVP Last administered on 06/27/19at 09:02; Start 06/26/19 at 10:00 Ringer's Solution 1,000 ml @ 50 mls/hr Q20H IV Last administered on 06/26/19at 14:16; Start 06/26/19 at 10:54; Stop 06/26/19 at 22:53; Status DC Iohexol (Omnipaque 300 Mg/ml) 100 ml STK-MED ONCE .ROUTE ; Start 06/26/19 at 14:12; Stop 06/26/19 at 14:12; Status DC Iohexol (Omnipaque 300 Mg/ml) 100 ml STK-MED ONCE IV Last administered on 06/26/19at 16:15; Start 06/26/19 at 16:15; Stop 06/26/19 at 16:16; Status DC Morphine Sulfate (Morphine Sulfate) 4 mg PRN Q2HR PRN IV PAIN; Start 06/26/19 at 22:00 Acetaminophen/ Hydrocodone Bitart (Lortab 5/325) 1 tab PRN Q6HRS PRN PO PAIN Last administered on 06/27/19at 09:03; Start 06/26/19 at 22:00 Sodium Chloride 1,000 ml @ 100 mls/hr Q10H IV Last administered on 06/27/19at 09:05; Start 06/27/19 at 07:45 Clonidine HCl (Catapres) 0.1 mg PRN Q1HR PRN PO HYPERTENSION; Start 06/27/19 at 07:45 Clonidine HCl (Catapres) 0.1 mg 1X ONCE PO Last administered on 06/27/19at 09:03; Start 06/27/19 at 07:45; Stop 06/27/19 at 07:46; Status DC Rocuronium [place] (Zemuron) 50 mg STK-MED ONCE .ROUTE ; Start 06/26/19 at 15:00; Stop 06/27/19 at 09:05; Status DC Succinylcholine Chloride (Anectine) 200 mg STK-MED ONCE .ROUTE ; Start 06/26/19 at 15:00; Stop 06/27/19 at 09:05; Status DC Glycopyrrolate (Glycopyrrolate) 1 mg STK-MED ONCE .ROUTE ; Start 06/26/19 at 15:00; Stop 06/27/19 at 09:05; Status DC Neostigmine Methylsulfate (Neostigmine Methylsulfate) 5 mg STK-MED ONCE .ROUTE ; Start 06/26/19 at 15:00; Stop 06/27/19 at 09:05; Status DC Propofol (Diprivan) 200 mg STK-MED ONCE IV ; Start 06/26/19 at 15:00; Stop 06/27/19 at 09:05; Status DC Active Scripts Active Reported Vitamin D3 (Cholecalciferol (Vitamin D3)) 5,000 Unit Tablet 1 Tab PO DAILY 30 Days Vitamin B-12 (Cyanocobalamin (Vitamin B-12)) 1,000 Mcg Tablet 1 Tab PO DAILY 30 Days Children's Aspirin (Aspirin) 81 Mg Tab.chew 81 Mg PO DAILY Ranitidine Hcl 150 Mg Tablet 1 Tab PO BID Humulin N (Nph, Human Insulin Isophane) 100 Unit/1 Ml Vial 100 Unit SQ Humulin R (Insulin Regular, Human) 100 Unit/1 Ml Vial 100 Unit IJ Atorvastatin Calcium 40 Mg Tablet 40 Mg PO DAILY Lisinopril-Hctz 20-25 Mg Tab (Lisinopril/Hydrochlorothiazide) 1 Each Tablet 1 T ab PO DAILY Janumet Xr 50-1,000 Mg Tablet (Sitagliptin Phos/Metformin Hcl) 1 Each Tbmp.24hr 1 Each PO DAILY Metformin Hcl 1,000 Mg Tablet 1,000 Mg PO DAILYWBKFT Vitals/I & O Vital Sign - Last 24 Hours 06/26/19 06/26/19 06/26/19 06/26/19 10:56 14:13 14:14 16:36 Temp 98.5 97.9 97.8 98.5 97.9 97.8 Pulse 70 76 80 Resp 16 20 20 B/P (MAP) 133/48 (76) 178/77 Pulse Ox 96 96 100 O2 Delivery Room Air Room Air Nasal Cannula O2 Flow Rate 3 06/26/19 06/26/19 06/26/19 06/26/19 16:48 16:58 17:10 19:00 Temp 97.8 97.8 97.8 98.6 97.8 97.8 97.8 98.6 Pulse 80 78 71 76 Resp 20 20 20 18 B/P (MAP) 180/78 174/82 181/84 160/88 (112) Pulse Ox 100 98 97 96 O2 Delivery Nasal Cannula Room Air Room Air Room Air O2 Flow Rate 3 06/26/19 06/26/19 06/26/19 06/27/19 20:00 21:54 23:00 03:00 Temp 98.9 97.8 98.9 97.8 Pulse 77 64 Resp 18 18 B/P (MAP) 155/60 (91) 151/67 (95) Pulse Ox 96 94 95 O2 Delivery Room Air Room Air Room Air Room Air O2 Flow Rate 3.0 06/27/19 06/27/19 06/27/19 07:00 09:03 09:03 Temp 98.7 98.7 Pulse 73 73 Resp 17 B/P (MAP) 152/49 (83) 152/49 Pulse Ox 94 O2 Delivery Room Air Room Air LAVINIA MEREDITH MD Jun 27, 2019 09:25
--- NOTE | 2019-06-27 09:46 | PDOC ---
Subjective: Subjective: Back and head pain, no abd pain. Objective: Vital Signs: Vital Signs Date Time Temp Pulse Resp B/P (MAP) Pulse Ox O2 Delivery O2 Flow Rate FiO2 06/27/19 09:03 73 152/49 06/27/19 09:03 Room Air 06/27/19 07:00 98.7 17 94 98.7 06/26/19 21:54 3.0 Labs: Laboratory Tests Test 06/26/19 11:35 06/26/19 21:25 06/27/19 03:40 Glucose (Fingerstick) 88 mg/dL 117 mg/dL Sodium Level 141 mmol/L Potassium Level 3.7 mmol/L Chloride Level 104 mmol/L Carbon Dioxide Level 24 mmol/L Anion Gap 13 Blood Urea Nitrogen 14 mg/dL Creatinine 0.9 mg/dL Estimated GFR (Cockcroft-Gault) 62.5 BUN/Creatinine Ratio 16 Glucose Level 76 mg/dL Calcium Level 8.5 mg/dL Total Bilirubin 2.2 mg/dL Aspartate Amino Transf (AST/SGOT) 232 U/L Alanine Aminotransferase (ALT/SGPT) 192 U/L Alkaline Phosphatase 476 U/L Total Protein 6.9 g/dL Albumin 2.8 g/dL Albumin/Globulin Ratio 0.7 Lipase 164 U/L Imaging: ERCP 06/26 s/p sphincterotomy/sludge withdrawal PE: GEN: NAD LUNGS: CTAB HEART: RRR ABD: NABS, S/ND/NT NEURO/PSYCH: A & O 3 A/P: RUQ pain - resolved s/p ERCP Abnormal LFTs - fluctuating Hepatic steatosis -- Try clears, ADAT. D/w Dr. Kenyon - harman to DC per GI if tolerates diet, follow-up w/ PCP to monitor LFTs in 2 weeks. JULIO CÉSAR GALVAN Jun 27, 2019 09:46
[2019-06-27 11:00] VITALS: BP 124/42
[2019-06-27 15:00] VITALS: BP 142/45
[2019-06-27 19:00] VITALS: BP 163/57
[2019-06-27] MEDS ORDERED: SODIUM CHLORIDE 0.65% NASAL SPRAY 45ML BOTTLE. NS PRN (20:15)
[2019-06-27] MEDS: MORPHINE SULFATE 4 MG/ML VIAL. IV PRN (20:52)
[2019-06-27 23:00] VITALS: BP 162/57
[2019-06-28 03:00] VITALS: BP 169/58
[2019-06-28 05:27] LABS: ALBUMIN 2.7 g/dL (3.4-5.0); ALBUMIN/GLOBULIN RATIO 0.6 (1.0-1.7); CALCIUM 8.4 mg/dL (8.5-10.1); CREATININE 0.9 mg/dL (0.6-1.0); GFR 62.5; POTASSIUM 3.5 mmol/L (3.5-5.1); TOTAL BILIRUBIN 1.7 mg/dL (0.2-1.0)
[2019-06-28 07:00] VITALS: BP 183/49
[2019-06-28] MEDS ORDERED: PANTOPRAZOLE 40 MG TABLET.DR. PO SCH (07:30)
[2019-06-28] MEDS ORDERED: NAPROXEN 250 MG TABLET PO PRN (07:45)
[2019-06-28] MEDS: CHOLECALCIFEROL (VITAMIN D3) 1,000 UNIT TABLET PO SCH (08:20)
[2019-06-28] MEDS: CYANOCOBALAMIN (VITAMIN B-12) 1,000 MCG TABLET. PO SCH (08:20)
[2019-06-28] MEDS: ASPIRIN CHEWABLE 81 MG TABLET. PO SCH (08:21)
[2019-06-28] MEDS: MORPHINE SULFATE 4 MG/ML VIAL. IV PRN (08:23)
[2019-06-28] MEDS: INSULIN LISPRO 300 UNITS/3 ML VIAL. SQ SCH ×2 (08:28→12:16)
[2019-06-28] MEDS ORDERED: LIDOCAINE (700MG/PATCH) PATCH. TD SCH (09:00)
--- NOTE | 2019-06-28 09:36 | PDOC ---
Subjective: Subjective: Tolerating PO w/o abd pain or n/v. Feels bloated, hasn't stooled. Didn't sleep well - feels some shortness of breath, having to breathe through mouth because sinus congestion, chest discomfort when she breathes. Objective: Objective: Reviewed records from [facility] - no cholelithiasis on path from cholecystectomy. Vital Signs: Vital Signs Date Time Temp Pulse Resp B/P (MAP) Pulse Ox O2 Delivery O2 Flow Rate FiO2 06/28/19 08:23 14 97 Room Air 06/28/19 07:00 98.2 68 183/49 (93) 98.2 06/27/19 08:00 3.0 Labs: Laboratory Tests Test 06/27/19 11:46 06/27/19 16:40 06/27/19 20:29 06/28/19 04:00 Glucose (Fingerstick) 214 mg/dL 169 mg/dL 203 mg/dL Sodium Level 137 mmol/L Potassium Level 3.5 mmol/L Chloride Level 100 mmol/L Carbon Dioxide Level 25 mmol/L Anion Gap 12 Blood Urea Nitrogen 14 mg/dL Creatinine 0.9 mg/dL Estimated GFR (Cockcroft-Gault) 62.5 BUN/Creatinine Ratio 16 Glucose Level 174 mg/dL Calcium Level 8.4 mg/dL Total Bilirubin 1.7 mg/dL Aspartate Amino Transf (AST/SGOT) 183 U/L Alanine Aminotransferase (ALT/SGPT) 177 U/L Alkaline Phosphatase 513 U/L Total Protein 7.0 g/dL Albumin 2.7 g/dL Albumin/Globulin Ratio 0.6 Test 06/28/19 07:31 Glucose (Fingerstick) 155 mg/dL PE: GEN: NAD - up to chair, looks slightly uncomfortable LUNGS: room air HEART: RRR ABD: round/some distention, non-tender, NABS NEURO/PSYCH: A & O 3 - son translates A/P: RUQ pain - resolved s/p ERCP Abnormal LFTs - fluctuating, hepatic steatosis on imaging HTN, sinus congestion, SOA, bloating -- Defer new symptoms to primary. Monitor LFTs as outpt - any additional recs per Dr. Kenyon. JULIO CÉSAR GALVAN Jun 28, 2019 09:36
[2019-06-28] MEDS ORDERED: POLYETHYLENE GLYCOL 3350 17 GM PACKET. PO PRN (09:45)
[2019-06-28] MEDS ORDERED: CETI10TA16 PO (10:20)
[2019-06-28] MEDS ORDERED: FLUT9.9S NS (10:20)
--- NOTE | 2019-06-28 10:28 | PDOC3 ---
Discharge Summary Visit Information Date of Admission: Jun 26, 2019 Date of Discharge: Jun 28, 2019 Admitting Diagnosis Comment: s/p ERCP for CBD stone and extraction of sludge 06/26 TRansaminitis S.p distant cholecystectomy 7 yrs [facility] Obesity BMI 32.5 FAtty liver HTN, controlled Anton, VMN - creat 1,4 POA Acute panc ,.re solved - normal lipase on dc Brief Hospital Course Allergies Allergies Coded Allergies Type Severity Reaction Last Updated Verified No Known Drug Allergies 06/26/19 No Vital Signs Vital Signs Date Time Temp Pulse Resp B/P (MAP) Pulse Ox O2 Delivery O2 Flow Rate FiO2 06/28/19 08:53 16 97 Room Air 06/28/19 07:00 98.2 68 183/49 (93) 98.2 06/27/19 08:00 3.0 Lab Results Laboratory Tests Test 06/26/19 11:35 06/26/19 21:25 06/27/19 03:40 06/27/19 11:46 Glucose (Fingerstick) 88 mg/dL (70-99) 117 mg/dL (70-99) 214 mg/dL (70-99) Sodium Level 141 mmol/L (136-145) Potassium Level 3.7 mmol/L (3.5-5.1) Chloride Level 104 mmol/L (98-107) Carbon Dioxide Level 24 mmol/L (21-32) Anion Gap 13 (6-14) Blood Urea Nitrogen 14 mg/dL (7-20) Creatinine 0.9 mg/dL (0.6-1.0) Estimated GFR (Cockcroft-Gault) 62.5 BUN/Creatinine Ratio 16 (6-20) Glucose Level 76 mg/dL (70-99) Hemoglobin A1c 8.0 % (4.8-5.6) Calcium Level 8.5 mg/dL (8.5-10.1) Total Bilirubin 2.2 mg/dL (0.2-1.0) Aspartate Amino Transf (AST/SGOT) 232 U/L (15-37) Alanine Aminotransferase (ALT/SGPT) 192 U/L (14-59) Alkaline Phosphatase 476 U/L (46-116) Total Protein 6.9 g/dL (6.4-8.2) Albumin 2.8 g/dL (3.4-5.0) Albumin/Globulin Ratio 0.7 (1.0-1.7) Lipase 164 U/L (73-393) Test 06/27/19 16:40 06/27/19 20:29 06/28/19 04:00 06/28/19 07:31 Glucose (Fingerstick) 169 mg/dL (70-99) 203 mg/dL (70-99) 155 mg/dL (70-99) Sodium Level 137 mmol/L (136-145) Potassium Level 3.5 mmol/L (3.5-5.1) Chloride Level 100 mmol/L (98-107) Carbon Dioxide Level 25 mmol/L (21-32) Anion Gap 12 (6-14) Blood Urea Nitrogen 14 mg/dL (7-20) Creatinine 0.9 mg/dL (0.6-1.0) Estimated GFR (Cockcroft-Gault) 62.5 BUN/Creatinine Ratio 16 (6-20) Glucose Level 174 mg/dL (70-99) Calcium Level 8.4 mg/dL (8.5-10.1) Total Bilirubin 1.7 mg/dL (0.2-1.0) Aspartate Amino Transf (AST/SGOT) 183 U/L (15-37) Alanine Aminotransferase (ALT/SGPT) 177 U/L (14-59) Alkaline Phosphatase 513 U/L (46-116) Total Protein 7.0 g/dL (6.4-8.2) Albumin 2.7 g/dL (3.4-5.0) Albumin/Globulin Ratio 0.6 (1.0-1.7) Laboratory Tests Test 06/27/19 11:46 06/27/19 16:40 06/27/19 20:29 06/28/19 04:00 Glucose (Fingerstick) 214 mg/dL (70-99) 169 mg/dL (70-99) 203 mg/dL (70-99) Sodium Level 137 mmol/L (136-145) Potassium Level 3.5 mmol/L (3.5-5.1) Chloride Level 100 mmol/L (98-107) Carbon Dioxide Level 25 mmol/L (21-32) Anion Gap 12 (6-14) Blood Urea Nitrogen 14 mg/dL (7-20) Creatinine 0.9 mg/dL (0.6-1.0) Estimated GFR (Cockcroft-Gault) 62.5 BUN/Creatinine Ratio 16 (6-20) Glucose Level 174 mg/dL (70-99) Calcium Level 8.4 mg/dL (8.5-10.1) Total Bilirubin 1.7 mg/dL (0.2-1.0) Aspartate Amino Transf (AST/SGOT) 183 U/L (15-37) Alanine Aminotransferase (ALT/SGPT) 177 U/L (14-59) Alkaline Phosphatase 513 U/L (46-116) Total Protein 7.0 g/dL (6.4-8.2) Albumin 2.7 g/dL (3.4-5.0) Albumin/Globulin Ratio 0.6 (1.0-1.7) Test 06/28/19 07:31 Glucose (Fingerstick) 155 mg/dL (70-99) Brief Hospital Course Ms. Dimas is a 68 old female, limited [place]. She lad [facility] 7 yrs ago, NOw comes with elevated LFts and abd pain, GI consulted and ercp done and showed retained CBD stones and sludge was removed and LFts coming down now, Some mild acute pancreatitis post ERCP with liapse in 800s that resolved in 1 day with my conservative mx, On day of dc, she complains of soa and sinus congestion, Will check a CXR before dc and starts ome H1 antag and flonase Dw family and RN Pt seen and examined FUll code Dispo: home independent consults; gi Proc ercp with cbd stone and sludge extraction Discharge Information Condition at Discharge: Improved, Stable Disposition/Orders: D/C to Home Scheduled Aspirin (Children's Aspirin) 81 Mg Tab.chew, 81 MG PO DAILY for prophylaxis, (Reported) Entered as Reported by: KILEY MINA on 06/26/19605 Last Action: Continued on 06/26/19 0900 by LAVINIA MEREDITH Cetirizine Hcl (Cetirizine Hcl) 10 Mg Tablet, 1 TAB PO DAILY for congestion, #30 Ref 5 Prescribed by: LAVINIA MEREDITH on 06/28/19 1020 Cholecalciferol (Vitamin D3) (Vitamin D3) 5,000 Unit Tablet, 1 TAB PO DAILY for supplement for 30 Days, #30 Ref 0 (Reported) Entered as Reported by: KILEY MINA on 06/26/19605 Last Action: Converted on 06/26/19899 by LAVINIA MEREDITH Cyanocobalamin (Vitamin B-12) (Vitamin B-12) 1,000 Mcg Tablet, 1 TAB PO DAILY for supplement for 30 Days, #30 Ref 0 (Reported) Entered as Reported by: KILEY MINA on 06/26/19605 Last Action: Continued on 06/26/19899 by LAVINIA MEREDITH Fluticasone Propionate (Flonase Allergy Relief) 9.9 Ml [place].susp, 2 SPRAYS NS DAILY for allergy for 7 Days Prescribed by: LAVINIA MEREDITH on 06/28/19 1020 Lisinopril/Hydrochlorothiazide (Lisinopril-Hctz 20-25 Mg Tab) 1 Each Tablet, 1 TAB PO DAILY, #30 Ref 5 (Reported) Entered as Reported by: RAMESH HOOD EMT-P on 06/26/1938 Last Action: HELD on 06/26/19899 by LAVINIA MEREDITH Metformin Hcl (Metformin Hcl) 1,000 Mg Tablet, 1,000 MG PO DAILYWBKFT for ANTI- DIABETIC, Ref 0 (Reported) Entered as Reported by: RAMESH HOOD EMT-P on 06/26/1937 Last Action: HELD on 06/26/19899 by LAVINIA MEREDITH Ranitidine Hcl (Ranitidine Hcl) 150 Mg Tablet, 1 TAB PO BID for GERD, #180 Ref 3 (Reported) Entered as Reported by: KILEY MINA on 06/26/19605 Last Action: Converted on 06/26/19899 by LAVINIA MEREDITH Sitagliptin Phos/Metformin Hcl (Janumet Xr 50-1,000 Mg Tablet) 1 Each Tbmp.24hr, 1 EACH PO DAILY, (Reported) Entered as Reported by: RAMESH HOOD EMT-P on 06/26/1938 Last Action: HELD on 06/26/19899 by LAVINIA MEREDITH Miscellaneous Medications Insulin Regular, Human (Humulin R) 100 Unit/1 Ml Vial, 100 UNIT IJ, (Reported) Entered as Reported by: RAMESH HOOD EMT-P on 06/26/1949 Last Action: HELD on 06/26/19899 by LAVINIA MEREDITH Nph, Human Insulin Isophane (Humulin N) 100 Unit/1 Ml Vial, 100 UNIT SQ, (Reported) Entered as Reported by: RAMESH HOOD EMT-P on 06/26/1950 Last Action: HELD on 06/26/19899 by LAVINIA MEREDITH Discontinued Medications Atorvastatin Calcium (Atorvastatin Calcium) 40 Mg Tablet, 40 MG PO DAILY for FOR CHOLESTEROL, #30 Ref 0 (Reported) Entered as Reported by: RAMESH HOOD EMT-P on 06/26/1939 Last Action: HELD on 06/26/19899 by LAVINIA AYALA MD Jun 28, 2019 10:28
[2019-06-28] MEDS ORDERED: FLUTICASONE 50MCG/NASAL SPRAY 16GM BOTTLE. NS SCH (10:30)
[2019-06-28 11:00] VITALS: BP 197/86
[2019-06-28] MEDS ORDERED: POLYETHYLENE GLYCOL 3350 17 GM PACKET. PO SCH (11:00)
[2019-06-28] MEDS ORDERED: CETIRIZINE HCL 10 MG TABLET. PO SCH (11:00)
--- NOTE | 2019-06-28 12:39 | RAD ---
EXAM: Chest, 2 views. HISTORY: Shortness of air. COMPARISON: None. FINDINGS: 2 views of chest are obtained. There is mild central predominant interstitial prominence without tiana congestion. There are slight decreased lung volumes with associated vascular crowding and atelectasis. There is suspected left infrahilar atelectasis. The heart is normal in size. IMPRESSION: Slight decreased lung volumes with vascular crowding and atelectasis. Electronically signed by: Kamille Gruber MD (06/28/2019 12:36 PM) [place] [id number]
[2019-06-28] MEDS ORDERED: NAPROXEN 500 MG TABLET PO PRN (12:54)
[2019-06-28 14:54] VITALS: BP 148/60
--- NOTE | 2019-06-28 15:38 | NUR ---
I have read the documentation by Tawny Joiner and concur. Nancy Borges RN [employer] In[employer]
--- NOTE | 2019-06-28 16:02 | NUR ---
Discharge Note: KAYLI THOMSON Discharge instructions and discharge home medications reviewed with Patient and a copy given. All questions have been answered and understanding verbalized. The following instructions and handouts were given: Discharge and Follow Up instructions, Prescriptions Discontinued lines and drains: PIV removed, Catheter intact. Patient discharged to Home with Self-Care via Son's Private Vehicle
[2019-06-28] MEDS ORDERED: PATCH REMOVAL. MC SCH (21:00)
== END 2019-06-28 15:35 | disposition home or self-care (01) | DRG 444 ==
LOC: ER 23:52 → 5 SOUTH 06-26 02:30
PROVIDERS: ADMIT Internal Medicine; ATTEND Internal Medicine
PROC: 0FC98ZZ Extirpation of Matter from Common Bile Duct, Via Natural or Artificial Opening Endoscopic (ICD-10-PCS; principal; 2019-06-26 15:00)
DX: K80.50 Calculus of bile duct without cholangitis or cholecystitis without obstruction (principal); K85.90 Acute pancreatitis without necrosis or infection, unspecified; N17.9 Acute kidney failure, unspecified; E66.9 Obesity, unspecified; E11.65 Type 2 diabetes mellitus with hyperglycemia; E78.5 Hyperlipidemia, unspecified; I10 Essential (primary) hypertension; K21.9 Gastro-esophageal reflux disease without esophagitis; K76.0 Fatty (change of) liver, not elsewhere classified; Z68.32 Body mass index [BMI] 32.0-32.9, adult; Z79.4 Long term (current) use of insulin; Z82.49 Family history of ischemic heart disease and other diseases of the circulatory system; Z90.49 Acquired absence of other specified parts of digestive tract; Z79.899 Other long term (current) drug therapy
CPT/HCPCS: 36415; 43262; 43264; 71046; 74176; 74328; 76705; 80053; 80076; 81001; 82962; 83036; 83690; 85025; 85610; 86705; 86709; 86803; 87086; 87340; 93005; 96361; 96374; 96375; C1726; C1757; C9113; J0330; J1815; J2270; J2405; J2704; J2710; J3490; J7030; J7120; Q9967; 99285-25; G0378